=== PATIENT | female | born 1955 | race Caucasian/White ===

== ENCOUNTER 2017-12-09 07:30 | Day surgery (SDC) | payer OTHER, SELFPAY ==
[2017-12-09] VITALS (8 sets, daily range): BP systolic 110–172; BP diastolic 80–99; PULSE 68–90; RESP 14–20; TEMP 36.1–36.7; O2SAT 93–98; BMI 32.6
[2017-12-09] MEDS: SODIUM CHLORIDE 0.9% 1,000 ML 200 ML IV (08:47)
--- NOTE | 2017-12-09 09:11 | PM.HP.1 ---
History of Present Illness Date Patient Seen: 12/09/17 Time Patient Seen: 09:13 Chief complaint: [id number] SCREENING COLONOSCOPY Narrative: Ruthie is here for screening colonoscopy and treatment for bleeding hemorrhoids. Patient History Medical History Diabetes (Chronic) Surgical History H/O tubal ligation (Resolved) Family & Social History Family History: Reviewed 12/09/17 by Cassi Faith MD Social History: household members spouse Tobacco & Substance use: Smoking Status Never smoker Meds Home Medications Medication Instructions Recorded Confirmed Type cetrizine hydrochloride 10 mg PO DAILY 11/01/17 12/09/17 History glipizide 5 mg tablet 5 mg PO DAILY 11/01/17 12/09/17 History metformin 1,000 mg tablet 500 mg PO BID 11/01/17 12/09/17 History vit C,E,zinc,copper-[id number] 250 cap PO cap 11/01/17 11/01/17 History mg-lutein 5 mg-zeaxanthin 1 mg capsule Allergies Allergy/AdvReac Type Severity Reaction Status Date / Time No Known Drug Allergies Allergy Unverified 11/01/17 15:54 Review of Systems Review of Systems All systems reviewed & are unremarkable except as noted in HPI and below Exam Vital Signs (past 8 hours): - 12/09/17 08:21 Temperature 96.9 F L Pulse Rate 68 Respiratory Rate 16 Blood Pressure 149/92 H Pulse Oximetry 96 Oxygen Delivery Method Room Air Narrative Exam Narrative: HEENT: Normocephalic and atraumatic, pupils equal round reactive to light accommodation with anicteric sclera Lungs: Clear bilaterally Heart: Regular rate and rhythm Abdomen: Soft, nontender, active bowel sounds Extremities warm and well perfused Assessment & Plan Plan: Assessment/Plan Narrative: Very pleasant and generally healthy 62-year-old lady with well controlled diabetes. She is here for screening colonoscopy and for banding for troublesome internal hemorrhoids.
--- NOTE | 2017-12-09 09:15 | P.HP_ITS ---
History of Present Illness Date Patient Seen: 12/09/17 Time Patient Seen: 09:13 Chief complaint: [id number] SCREENING COLONOSCOPY Narrative: Ruthie is here for screening colonoscopy and treatment for bleeding hemorrhoids. Patient History Medical History Diabetes (Chronic) Surgical History H/O tubal ligation (Resolved) Family & Social History Family History: Reviewed 12/09/17 by Cassi Faith MD Social History: household members spouse Tobacco & Substance use: Smoking Status Never smoker Meds Home Medications Medication Instructions Recorded Confirmed Type cetrizine hydrochloride 10 mg PO DAILY 11/01/17 12/09/17 History glipizide 5 mg tablet 5 mg PO DAILY 11/01/17 12/09/17 History metformin 1,000 mg tablet 500 mg PO BID 11/01/17 12/09/17 History vit C,E,zinc,copper-[id number] 250 cap PO cap 11/01/17 11/01/17 History mg-lutein 5 mg-zeaxanthin 1 mg capsule Allergies Allergy/AdvReac Type Severity Reaction Status Date / Time No Known Drug Allergies Allergy Unverified 11/01/17 15:54 Review of Systems Review of Systems All systems reviewed & are unremarkable except as noted in HPI and below Exam Vital Signs (past 8 hours): - 12/09/17 08:21 Temperature 96.9 F L Pulse Rate 68 Respiratory Rate 16 Blood Pressure 149/92 H Pulse Oximetry 96 Oxygen Delivery Method Room Air Narrative Exam Narrative: HEENT: Normocephalic and atraumatic, pupils equal round reactive to light accommodation with anicteric sclera Lungs: Clear bilaterally Heart: Regular rate and rhythm Abdomen: Soft, nontender, active bowel sounds Extremities warm and well perfused Assessment & Plan Plan: Assessment/Plan Narrative: Very pleasant and generally healthy 62-year-old lady with well controlled diabetes. She is here for screening colonoscopy and for banding for troublesome internal hemorrhoids.
--- NOTE | 2017-12-09 09:48 | PM.OP.1 ---
Operative Date/Time/Diagnoses Date of procedure: 12/09/17 Time of procedure: 09:48 Pre-op diagnosis: Screening colonoscopy Bleeding hemorrhoids Post-op diagnosis: same Procedure & Clinicians Procedure: Colonoscopy to the cecum Banding of 2 internal hemorrhoid complexes Same procedure as scheduled: Yes Indications: Bleeding internal hemorrhoids Last colonoscopy 10 years ago Surgeon: Cassi Faith Click Yes if Unassisted: Yes Anesthesia Type: Sedation (Versed 8 mg; fentanyl 250 mcg) Operative Notes Findings: 1. Excellent prep 2. No polyps or mass lesions 3. No AV malformations 4. Minimal diverticulosis limited to the sigmoid region 5. Grade 3 internal hemorrhoids -1 large complex containing obvious clot and 1 slightly smaller complex but also prolapsing. 6. Essentially normal mucosa throughout Closure Type: not applicable Estimated Blood Loss (mL): 1 Procedure in detail: After obtaining informed consent, the patient was brought to the GI suite and placed in the left lateral decubitus position on the examination table. After placement of appropriate monitors, the patient was given incremental doses of Versed and Fentanyl until an appropriate level of sedation was achieved. A time out was held per SCOAP protocol. A digital rectal examination was performed and did not reveal any masses or obstructing lesions. The colonoscope was gently passed into the patient's anus and the entire colon navigated to the level of the cecum with minimal difficulty. Once in the cecum, the scope was withdrawn being sure to go before and beyond all mucosal folds and prominences and get an excellent examination. The findings are noted above. At the level of the rectal vault, the scope was retroflexed and the internal anal canal was examined. The scope was straightened and air aspirated from the colon. The instrument was removed from the patient's body and the procedure was concluded. We continued with hemorrhoid banding. The anoscope was placed in the patient's anal canal. At the 530 Radian, we noted a very enlarged and engorged hemorrhoid complex with obvious areas of clot. This was grasped with the forceps and 2 hemorrhoid bands deployed. At approximately the 10 o'clock Radian there was a smaller but similar hemorrhoid complex. Both of these were clearly above the dentate line. This 2nd complex was again grasped with forceps and hemorrhoid bands deployed. The remainder of the internal hemorrhoids were grade 2 or better in appearance and without prolapse. It is the larger hemorrhoid at 5:30 a.m. that is the likely source of recent anal bleeding. The patient was allowed to awaken from sedation without difficulty and taken to the post-anesthesia care unit in good condition. Complications: none Condition: stable Disposition: PACU Plan for aftercare: 1. Discharge to home 2. Follow up with me in 2 weeks
[2017-12-09] MEDS: fentaNYL 250 MCG/5 ML INJ IV (09:51)
[2017-12-09] MEDS: MIDAZOLAM 5 MG/5 ML VIAL IV (09:52)
--- NOTE | 2017-12-09 11:10 | SUR.PHASEII ---
pt to bathroom at 1050 call light on , found patient vomiting on floor , assisted pt back to bed , vss, resting, spouse at msie
--- NOTE | 2017-12-09 11:28 | SUR.PHASEII ---
1120 pt feels better , vss, not nauseous , ready to got home
== END 2017-12-09 11:30 | disposition home or self-care (01) ==
PROVIDERS: PCP Family Medicine; Visit Provider Surgery
PROC: 0DJD8ZZ Inspection of Lower Intestinal Tract, Via Natural or Artificial Opening Endoscopic (ICD-10-PCS; CPT 45378; principal; 2017-12-09 08:45)
DX: Z12.11 Encounter for screening for malignant neoplasm of colon (principal); K64.2 Third degree hemorrhoids; K57.30 Diverticulosis of large intestine without perforation or abscess without bleeding; E11.9 Type 2 diabetes mellitus without complications; Z79.84 Long term (current) use of oral hypoglycemic drugs
CPT/HCPCS: 45378; 46221; J2250; J3010

== ENCOUNTER → 2022-01-22 09:39 | Outpatient (CLI) | payer BC, SELFPAY ==
--- NOTE | 2022-01-22 | DI.RAD.S_ITS ---
PROCEDURE: FL ARTHROGRAM HIP LT INDICATIONS: left hip aspiration TECHNIQUE: The indications, alternatives, benefits, risks, and complications of the procedure were explained to the patient. Written informed consent was obtained. The hip was examined fluoroscopically with the legs fixed in slight internal rotation, and a site for needle placement chosen for entry into the hip joint from an anterior approach. Care was taken to locate the common femoral artery and vein beforehand. The skin was prepped and draped in a sterile fashion, and 1% Lidocaine infiltrated from skin down to joint capsule. A spinal needle was inserted into the joint, and a small amount of iodinated contrast media injected to confirm intra-articular placement of the needle tip. There is a joint effusion (blood tinged), which was noted at the time of the procedure. After discussion with Dr. Gregory, steroid injection canceled. Approximately 0.5 cc joint fluid was collected and sent to the laboratory for culture and analysis The needle was removed and a dressing was applied. The patient was given postprocedural instructions and sent to the MR suite for imaging. COMPARISON: None. FINDINGS: A single fluoroscopic spot image demonstrates intra-articular location of injected iodinated contrast. There is a joint effusion. IMPRESSION: 1. Successful fluoroscopically guided joint fluid aspiration. Joint fluid was sent to the laboratory for analysis. 2. Stool injection was canceled. 3. The result was discussed with Dr. Gregory. Dictated by: Willy Cedillo M.D. on 01/22/2022 at 13:34 Approved by: Willy Cedillo M.D. on 01/22/2022 at 13:37
== END ==
PROVIDERS: PCP Nurse Practitioner Family; Referring Provider Counselor Mental Health; Visit Provider Counselor Mental Health
DX: M16.12 Unilateral primary osteoarthritis, left hip (principal)
CPT/HCPCS: 20610; 77002; 87070; 87075; 87205

== ENCOUNTER → 2024-04-11 09:41 | Outpatient (CLI) | payer BC, SELFPAY ==
--- NOTE | 2024-05-05 17:44 | DIAB.MNT ---
Initial Diabetes Medical Nutrition Therapy Assessment Name: Ruthie Mcneil Date: 04/11/24 Time: 1010-1110a Dx: Type II Diabetes Provider: Barbara Preferred Learning Style: Listening, watching, hands on Ruthie presents for initial visit with , [place], who also had T2Dm. FH of DM with brother, sister, and maternal grandfather. Reports DM dx about 10 years ago. States provider wants to start insulin. Was on GLP1 in Dec 2023, Victoza, with issues getting at access due to supply, insurance covered per report. Endorses cravings of crunchy snacks at night. Recent breast cancer dx with needing radiation starting 04/18. No chemo needed pe report. Diet Recall: 8a: eggs, toast, fruit 7-9a: coffee creamer sweet 12-1p: cottage cheese fruit or jello 5-6p: brown rice and quinoa, burger patricia with cheese OR steak with half potato and salad withsmall slice bread 8p apple water 3x 16.9oz sf soda Anthropometrics: Ht: 61.5 Wt: 160# reported Physical Activity: 30 min walks 5 days per week or more, considering resistance training Self-Monitoring Blood Glucose: Checking FBG and HS. FBG often 140-160mg/dl and HS often 120-130 but up to 200mg/dl. Low BG symptoms once with Bg of 104mg/dl (emesis and shaky-- ate an oragne and BG up to 114mg/dl). May be open to CGM sample in the future. Diabetes Medications: 1000mg Metformin BID 10mg Glipizide BID 25mg Jardiance Pertinent Labs: hgA1c: 7.3% 07/2023 8.2% 01/2024 Past Medical History: (Last Reviewed 12/28/17 @ 11:37 by Cassi Faith MD) Diabetes Nutrition Rx: Carbohydrates: Meal:30-45g Snack:15-30g Nutrition Diagnosis: - Nutrition and food related knowledge deficit r/t needing more info on portions and label reading aeb pt report Intervention: This participant was very receptive. Provided appropriate educational handouts. Discussed the following topics: Completed intake assessment. Discussed barriers to care. HgA1c, its correlation to blood glucose numbers, and rationale for goal BG review and goals Plate Method, impact of macronutrients on blood sugar, meal timing, carbohydrate counting, pairing macronutrients and spreading out carbohydrates for better blood glucose management Recommended servings for carbohydrates at meals and snacks Brainstormed appropriate meal/snack ideas based on food preferences Role of physical activity and following provider guidelines for safety Medication management: potential for change in GLP1 Potential for CGM sample Created SMART goals for patient self-care and success. Goals: Check labels for net CHO Try snack ideas/portions Pair CHo and protein Follow-up: NENO MELGAR follow-up in 4-6 weeks per pt req Rose Chung RDN, TALIA Certified Diabetes Care and Sane Nurse P: [phone] Thank you for this referral
== END ==
PROVIDERS: PCP Nurse Practitioner Family; Referring Provider Nurse Practitioner Family
DX: E11.9 Type 2 diabetes mellitus without complications (principal); Z71.3 Dietary counseling and surveillance; Z79.84 Long term (current) use of oral hypoglycemic drugs
CPT/HCPCS: 97802

== ENCOUNTER → 2024-05-16 08:42 | Outpatient (CLI) | payer BC, SELFPAY ==
--- NOTE | 2024-05-16 10:01 | DIAB.FU ---
Follow-up Diabetes Education Assessment Name: Ruthie Mcneil Date: 05/16/24 Time: [id number] Dx: Type II Diabetes Dx: Type II Diabetes Ruthie presents for follow-up visit. FH of DM with brother, sister, and maternal grandfather. Reports DM dx about 10 years ago. States provider wants to start insulin. Was on GLP1 in Dec 2023, Victoza, with issues getting at access due to supply, insurance covered per report. Potentially interested in DM classes in July, never finished classes at diagnosis. Avoiding beef and pork per oncologist recs. Plans to chat with PCP about Ozempic since her insurance will cover. Questions about where to inject. Wants to d/c sulfonylurea Recent breast cancer dx with needing radiation started 04/18. No chemo needed per report. Endorses fatigue with tx. Physical Activity: 30 min walks 5 days per week or more, considering resistance training reported last visit Self-Monitoring Blood Glucose: Checking FBG and HS. FBG often 140-160mg/dl with recent numbers up to 192mg.dl. and HS often 120-130 but up to 300mg/dl more recent.y. Low BG symptoms once with Bg of 104mg/dl (emesis and shaky-- ate an oragne and BG up to 114mg/dl). May be open to CGM sample in the future. Diabetes Medications: 1000mg Metformin BID 10mg Glipizide BID 25mg Jardiance Pertinent Labs: hgA1c: 7.3% 07/2023 8.2% 01/2024 Past Medical History: (Last Reviewed 12/28/17 @ 11:37 by Cassi Faith MD) Diabetes Intervention: This participant was very receptive. Provided appropriate educational handouts. Discussed the following topics: Medication management potential interactions action of meds ADA recs SE and action of Ozempic Label reading Pairing foods Created SMART goals for patient self-care and success. Goals: Check labels for net CHO- met Try snack ideas/portions- met Pair CHo and protein - in progress Add protein to popcorn- new Chat with PCP about Ozempic- new Follow-up: NENO MELGAR follow-up in 4- weeks after PCP visit, new HGA1c, and potentially Ozempic initiation. Rose Chung RDN, TALIA Certified Diabetes Care and Staff Pharmacist P: [phone] Thank you for this referral
== END ==
PROVIDERS: PCP Nurse Practitioner Family; Referring Provider Nurse Practitioner Family
DX: E11.9 Type 2 diabetes mellitus without complications (principal); Z71.3 Dietary counseling and surveillance; C50.919 Malignant neoplasm of unspecified site of unspecified female breast; Z83.3 Family history of diabetes mellitus; Z79.84 Long term (current) use of oral hypoglycemic drugs
CPT/HCPCS: G0108